=== PATIENT | male | born 1955 | race Caucasian/White ===

== ENCOUNTER 2016-06-04 13:14 | Emergency (ER) | payer MEDICARE ==
[~2016-06-04 13:14] MED LIST: ASPIR 8181 MG PO; COZAAR25 MG PO; PRAVACHOL40 MG PO; VITAMIN D250000 UNIT PO; ZYLOPRIM100 MG PO
[2016-06-04 14:49] LABS: BASO % 0.1 % (0.2-1.2); EOS # 0.1 10_X3_uL (0.0-0.5); EOS % 0.6 % (0.8-7.0); GRAN # 17.6 10_X3_uL (1.8-5.4); GRAN % 83.8 % (34.0-67.9); HEMOGLOBIN 15.1 g/dL (13.7-17.5); LYMPH # 1.4 10_X3_uL (1.3-3.6); LYMPH % 6.6 % (21.8-53.1); MEAN CORPUSCULAR HEMOGLOBIN 32.1 pg (27.0-33.0); MEAN CORPUSCULAR HGB CONC 33.6 g/dL (32.0-36.0); MEAN CORPUSCULAR VOLUME 95.5 fL (79-92); MEAN PLATELET VOLUME 10.1 fl (7.5-11.5); MONO # 1.9 10_X3_uL (0.3-0.8); MONO % 8.9 % (5.3-12.2); PLATELET COUNT 207 x10_3/uL (163-337); RED BLOOD COUNT 4.71 x10_6/uL (4.6-6.1); RED CELL DISTRIBUTION WIDTH 13.7 % (11.6-14.4)
[2016-06-04 15:15] LABS: ALBUMIN 3.6 gm/dL (3.4-5.0); BILIRUBIN,TOTAL 1.21 mg/dL (0.0-1.0); CALCIUM 9.6 mg/dL (8.7-10.7); CREATININE 2.8 mg/dL (0.6-1.3); POTASSIUM 5.1 mmol/L (3.5-5.1); TOTAL PROTEIN 7.9 gm/dL (6.4-8.2)
== END 2016-06-04 18:15 | disposition short-term general hospital (02) ==
LOC: ER 13:14
PROVIDERS: Emergency Medicine
DX: K80.40 Calculus of bile duct with cholecystitis, unspecified, without obstruction (principal); R10.11 Right upper quadrant pain; Z85.47 Personal history of malignant neoplasm of testis; Z79.82 Long term (current) use of aspirin; Z79.899 Other long term (current) drug therapy
CPT/HCPCS: 36415; 80053; 82150; 83690; 85025; 87040; 93005; 96365; 96375; 99070; 99284; 99285-25; J1170

== ENCOUNTER 2016-07-31 14:32 | Emergency (ER) | payer MEDICARE, OTHER ==
[2016-07-31 15:26] LABS: BASO % 0.3 % (0.2-1.2); EOS # 0.4 10_X3_uL (0.0-0.5); EOS % 2.4 % (0.8-7.0); GRAN # 12.4 10_X3_uL (1.8-5.4); GRAN % 79.2 % (34.0-67.9); HEMATOCRIT 31.5 % (40-51); HEMOGLOBIN 10.2 g/dL (13.7-17.5); LYMPH # 1.7 10_X3_uL (1.3-3.6); LYMPH % 10.7 % (21.8-53.1); MEAN CORPUSCULAR HGB CONC 32.4 g/dL (32.0-36.0); MEAN CORPUSCULAR VOLUME 92.6 fL (79-92); MEAN PLATELET VOLUME 9.9 fl (7.5-11.5); MONO # 1.2 10_X3_uL (0.3-0.8); MONO % 7.4 % (5.3-12.2); PLATELET COUNT 461 x10_3/uL (163-337); RED CELL DISTRIBUTION WIDTH 15.9 % (11.6-14.4); WHITE BLOOD COUNT 15.6 x10_3/uL (4.2-9.1)
[2016-07-31 16:03] LABS: ALBUMIN 3.2 gm/dL (3.4-5.0); BILIRUBIN,TOTAL 0.48 mg/dL (0.0-1.0); CALCIUM 9.2 mg/dL (8.7-10.7); CREATININE 3.5 mg/dL (0.6-1.3); TOTAL PROTEIN 7.6 gm/dL (6.4-8.2)
== END 2016-07-31 20:40 | disposition short-term general hospital (02) ==
LOC: ER 14:32
PROVIDERS: General Practice
DX: K80.80 Other cholelithiasis without obstruction (principal); N28.1 Cyst of kidney, acquired; N18.9 Chronic kidney disease, unspecified; R53.1 Weakness; R10.9 Unspecified abdominal pain
CPT/HCPCS: 36415; 74150; 80053; 83605; 83690; 85025; 87040; 87186; 96361; 96365; 99070; 99284; 99285-25

== ENCOUNTER 2016-08-04 17:58 | Emergency (ER) | payer MEDICARE, OTHER ==
[2016-08-04 19:48] LABS: BASO # 0.1 10_X3_uL (0.0-0.1); BASO % 0.7 % (0.2-1.2); EOS # 0.4 10_X3_uL (0.0-0.5); EOS % 3.7 % (0.8-7.0); GRAN # 7.2 10_X3_uL (1.8-5.4); GRAN % 68.6 % (34.0-67.9); HEMATOCRIT 34.5 % (40-51); HEMOGLOBIN 10.9 g/dL (13.7-17.5); LYMPH # 2.1 10_X3_uL (1.3-3.6); MEAN CORPUSCULAR HEMOGLOBIN 29.9 pg (27.0-33.0); MEAN CORPUSCULAR HGB CONC 31.6 g/dL (32.0-36.0); MEAN CORPUSCULAR VOLUME 94.5 fL (79-92); MEAN PLATELET VOLUME 9.1 fl (7.5-11.5); MONO # 0.7 10_X3_uL (0.3-0.8); PLATELET COUNT 419 x10_3/uL (163-337); RED BLOOD COUNT 3.65 x10_6/uL (4.6-6.1); WHITE BLOOD COUNT 10.5 x10_3/uL (4.2-9.1)
[2016-08-04 20:08] LABS: URINE BILIRUBIN NEGATIVE (NEGATIVE); URINE BLOOD TRACE (NEGATIVE); URINE GLUCOSE (UA) NORMAL (NORMAL); URINE KETONE NEGATIVE (NEGATIVE); URINE LEUKOCYTE ESTERASE NEGATIVE (NEGATIVE); URINE NITRATE NEGATIVE (NEGATIVE); URINE PROTEIN 3+ (NEGATIVE); UROBILINOGEN NORMAL mg/dL (<1.0)
[2016-08-04 20:18] LABS: URINE AMORPHOUS SEDIMENT TRACE; URINE BACTERIA TRACE (NONE SEEN); URINE RBC 0-5 /[HPF] (0-2); URINE SQUAMOUS EPITHELIAL CELL 0-10 /[HPF] (NONE SEEN); URINE YEAST 1+ (NONE SEEN)
== END 2016-08-04 20:43 | disposition home or self-care (01) ==
LOC: ER 17:58
PROVIDERS: Internal Medicine
DX: D64.9 Anemia, unspecified (principal); B95.7 Other staphylococcus as the cause of diseases classified elsewhere; E78.5 Hyperlipidemia, unspecified; I10 Essential (primary) hypertension; M10.9 Gout, unspecified; Z87.440 Personal history of urinary (tract) infections; M48.00 Spinal stenosis, site unspecified
CPT/HCPCS: 36415; 81001; 85025; 87040; 99283